=== PATIENT | male | born 1995 | race Caucasian/White ===

== ENCOUNTER 2016-06-28 20:06 | Emergency (ER) | payer OTHER ==
[~2016-06-28] VITALS: Ht 180.3 cm; Wt 110.4 kg
[~2016-06-28 20:06] MED LIST: CIALIS20 MG PO; CLINDAMYCIN HC300 MG PO; FLEXERIL10 MG PO; NAPROSYN500 MG PO; NOHOMEMEDS; PERCOCET 5/31 TABLET PO; ULTRAM50 MG PO
[2016-06-28 22:19] VITALS: BP 148/88
== END 2016-06-28 22:20 | disposition home or self-care (01) ==
LOC: EME 20:06 → EXP 20:06
PROC: 0H90XZZ Drainage of Scalp Skin, External Approach (ICD-10-PCS; principal; 2016-06-28)
DX: L02.811 Cutaneous abscess of head [any part, except face] (principal); J45.909 Unspecified asthma, uncomplicated; Z87.891 Personal history of nicotine dependence
CPT/HCPCS: 99281; 99284

== ENCOUNTER 2017-10-16 20:22 | Emergency (ER) | payer OTHER ==
[~2017-10-16] VITALS: Ht 177.8 cm; Wt 112.1 kg
[2017-10-16] MEDS ORDERED: BACTRIM,SEPT1 TABLET PO (21:49)
[2017-10-16] MEDS ORDERED: ANTIVERT25 MG PO (21:49)
[2017-10-16 22:19] VITALS: BP 152/80
== END 2017-10-16 22:20 | disposition home or self-care (01) ==
LOC: EME 20:22
DX: H66.91 Otitis media, unspecified, right ear (principal); Z87.891 Personal history of nicotine dependence; Z88.1 Allergy status to other antibiotic agents
CPT/HCPCS: 99281; 99283